=== PATIENT | male | born 1990 | race Caucasian/White ===

== ENCOUNTER 2020-11-11 01:04 | Emergency (ER) | payer OTHER ==
[~2020-11-11] VITALS: Ht 182.9 cm; Wt 88.6 kg
[2020-11-11 01:17] LABS: COLLECTION METHOD CLEAN CATCH
[2020-11-11 01:22] LABS: PH 6 (5-8); SQUAMOUS EPITHELIAL None Seen /hpf; URINE APPEARANCE Clear; URINE BACTERIA None Seen /hpf; URINE BILIRUBIN Negative (NEGATIVE); URINE BLOOD Negative (NEGATIVE); URINE COLOR Straw; URINE GLUCOSE Negative (NEGATIVE); URINE KETONE Negative (NEGATIVE); URINE LEUKOCYTE ESTERASE Negative (NEGATIVE); URINE NITRATE Negative (NEGATIVE); URINE PROTEIN(semi-quant) Negative (NEGATIVE); URINE RBC None Seen /hpf; URINE UROBILINOGEN Negative (NEGATIVE)
[2020-11-11] MEDS ORDERED: DOXYCYCLINE 10100 MG PO ×2 (01:30→01:53)
[2020-11-11 01:50] VITALS: BP 131/90; PULSE 96; TEMP 97.9
== END 2020-11-11 01:53 | disposition home or self-care (01) ==
LOC: COL.ER 01:04
PROVIDERS: Emergency Medicine
DX: N45.1 Epididymitis (principal); N34.2 Other urethritis
CPT/HCPCS: J0696